=== PATIENT | female | born 1980 | race Caucasian/White ===

== ENCOUNTER 2020-02-09 08:27 | Emergency (ER) | payer BC ==
[~2020-02-09] VITALS: Ht 157.4 cm; Wt 93.9 kg
[2020-02-09] MEDS ORDERED: TESSALON PERLE100 MG PO (11:08)
== END 2020-02-09 11:09 | disposition home or self-care (01) ==
LOC: ED 08:27
DX: J40 Bronchitis, not specified as acute or chronic (principal)